=== PATIENT | female | born 1985 ===

== ENCOUNTER 2021-02-14 08:56 | Outpatient (CLI) | payer MEDICAID, OTHER ==
[2021-02-14 09:55] VITALS: BP 114/75
--- NOTE | 2021-02-14 13:47 | Ultrasound Report ---
ULTRASOUND OBSTETRIC LIMITED ULTRASOUND BIOPHYSICAL PROFILE INDICATION / CLINICAL INFORMATION: QUESTIONABLE WATER HAS BROKEN - DORENE. Clinical Gestational Age (GA) in weeks, days: 39 weeks TECHNIQUE: Transabdominal. COMPARISON: None available. FINDINGS: BREATHING MOVEMENT = 2 GROSS BODY MOVEMENT = 2 TONE = 2 QUALITATIVE AMNIOTIC FLUID VOLUME = 2 TOTAL BIOPHYSICAL SCORE = 8/8 HEART RATE (beats per minute): 133 AMNIOTIC FLUID INDEX (cm) = 9.9 (normal = 7-24 cm) PRESENTATION: Cephalic. ADDITIONAL FINDINGS: Placenta is located posteriorly. IMPRESSION: 1. Biophysical Score = 8/8 2. Single viable IUP in a cephalic presentation with normal DORENE at this time. Signer Name: Sammi Willams MD Signed: 02/14/2021 1:43 PM Workstation Name: [email or web address]
== END 2021-02-14 13:55 | disposition home or self-care (01) ==
LOC: TRG 08:56 → APU 08:57 → TRG 13:55
PROVIDERS: ATTEND Obstetrics & Gynecology
DX: Z34.93 Encounter for supervision of normal pregnancy, unspecified, third trimester (principal); Z3A.39 39 weeks gestation of pregnancy
CPT/HCPCS: 36415; 59025; 76815; 76819; 84112

== ENCOUNTER 2021-02-26 08:32 | Inpatient (IN) | payer OTHER ==
--- NOTE | 2021-02-26 10:18 | History and Physical Report ---
History of Present Illness Date of examination: 02/26/21 Date of admission: 02/26/21 Chief complaint: LOF History of present illness: at 39.3wks per records not c/w pt report. care at [facility]. Pt c/o LOF, denies vag bleed, headache or feeling ctx. Pt admits to movement. From records obtained later show left breast mass. GBS neg. Blood type O positive, neg ab screen, Rubella immune, RPR, HIV and HepBsA all neg. Past History Past Medical History: other (left breast mass) Past Surgical History: no surgical history Social history: no significant social history - Obstetrical History Expected Date of Delivery: 03/04/21 Actual Gestation: 39 Week(s) 1 Day(s) : 4 Para: 3 Number of Living Children: 3 Medications and Allergies Allergies Allergy/AdvReac Type Severity Reaction Status Date / Time No Known Allergies Allergy Verified 09/25/15 01:28 Home Medications Medication Instructions Recorded Confirmed Last Taken Type Vit-Fe Fumar-FA [ 1 tab PO QDAY 09/25/15 02/26/21 02/25/21 History Vitamin] Active Meds: Active Medications Acetaminophen (Acetaminophen 325 Mg Tab) 650 mg PO Q4H PRN PRN Reason: Pain, Mild (1-3) Carboprost Tromethamine (Carboprost Tromethamine 250 Mcg/1 Ml Inj) 250 mcg IM ONCE PRN PRN Reason: Uterine Bleeding Ephedrine Sulfate (Ephedrine Sulfate 50 Mg/1 Ml Inj) 10 mg IV Q2M PRN PRN Reason: Hypotension Fentanyl (Fentanyl 100 Mcg/2 Ml Inj) 100 mcg IV Q2H PRN PRN Reason: Pain,Severe (7-10) LABOR PAIN Oxytocin/Sodium Chloride (Pitocin/Ns 30 Unit/500ml) 30 units in 500 mls @ 2 mls/hr IV TITR ROSITA; Protocol Lactated Ringer's (Lactated Ringers) 1,000 mls @ 125 mls/hr IV DIRECT ROSITA Oxytocin/Sodium Chloride (Pitocin/Ns 30 Unit/500ml) 30 units in 500 mls @ 40 mls/hr IV TITR ROSITA; Protocol Ampicillin Sodium (Ampicillin/Ns 2 Gm/100 Ml) 2 gm in 100 mls @ 100 mls/hr IV ONCE ONE; Protocol Stop: 02/26/21 11:08 Lidocaine (Lidocaine (2%) 20 Mg/1 Ml Vial 20 Ml Mdv) 20 ml INFILTRATI ONCE ONE Stop: 02/26/21 10:10 Loperamide HCl (Loperamide 2 Mg Cap) 2 mg PO ONCE PRN PRN Reason: give with Hemabate Methylergonovine Maleate (Methylergonovine Maleate 0.2 Mg/Ml Vial) 0.2 mg IM ONCE PRN PRN Reason: Uterine Bleeding Mineral Oil (Mineral Oil 30 Ml Oral Liqd) 30 ml PO QHS PRN PRN Reason: Constipation Misoprostol (Misoprostol 200 Mcg Tab) 800 mcg IL ONCE PRN PRN Reason: Uterine Bleeding Nalbuphine HCl (Nalbuphine 10 Mg/1 Ml Inj) 10 mg IV Q2H PRN PRN Reason: Pain, Moderate (4-6) Naloxone HCl (Naloxone 0.4 Mg/1 Ml Inj) 0.1 mg IV Q2MIN PRN PRN Reason: Res Rate </= 8 or 02 SAT < 92% Ondansetron HCl (Ondansetron 4 Mg/2 Ml Inj) 4 mg IV Q8H PRN PRN Reason: Nausea And Vomiting Oxytocin (Oxytocin 10 Unit/1 Ml Inj) 10 unit IM ONCE PRN PRN Reason: Uterine Bleeding Promethazine HCl (Promethazine 25 Mg Tab) 25 mg PO Q6H PRN PRN Reason: Nausea And Vomiting Terbutaline Sulfate (Terbutaline 1 Mg/1 Ml Inj) 0.25 mg SUB-Q ONCE PRN PRN Reason: Hyperstimulation/Hypertonicity Review of Systems All systems: negative (LOF) - Vital Signs Vital signs: Vital Signs Temp Pulse Resp BP Pulse Ox 98.4 F 81 16 120/77 98 02/26/21 08:59 02/26/21 08:59 02/26/21 08:59 02/26/21 08:59 02/26/21 08:59 Temp Pulse Resp BP Pulse Ox 98.4 F 83 16 120/77 98 02/26/21 08:59 02/26/21 10:10 02/26/21 08:59 02/26/21 08:59 02/26/21 10:10 - Physical Exam Breasts: Positive: deferred Lungs: Positive: Normal air movement Abdomen: Positive: normal appearance Genitourinary (Female): Positive: normal external genitalia Vulva: both: normal (per nurse) Vagina: Positive: normal moisture Uterus: Positive: enlarged (non-tender, gravid) Extremities: Positive: normal - Obstetrical FHR: category 1 Cervical Dilatation: 4 (grossly ruptured per nurse report) Cervical Effacement Percentage: 0 station: -2 Uterine Contraction Pattern: Irregular Results Result Diagrams: 02/26/21 10:55 Abnormal lab results 02/26/21 Range/Units Unknown Membranes Rupture Positive A (Negative) All other labs normal. Assessment and Plan Term preg with PROM with irreg ctx, unknown GBS 1. Admit to labor and delivery, obtain records from records 2. Augment with pitocin if unchanged in 2hrs 3. Amp for unknown GBS 4. IV pain med or epidural when desired Plan of care discussed with pt and she agrees. all questions encouraged and answered
[2021-02-26] MEDS ORDERED: PROMETHAZINE 25 MG TAB PO PRN ×2 (11:00→16:06)
[2021-02-26] MEDS ORDERED: METHYLERGONOVINE MALEATE 0.2 MG/ML VIAL IM PRN (11:00)
[2021-02-26] MEDS ORDERED: NalbUPHINE 10 MG/1 ML INJ IV PRN (11:00)
[2021-02-26] MEDS ORDERED: OXYTOCIN DRIP 30 UNITS/500 ML BAG IV SCH ×2 (11:00)
[2021-02-26] MEDS ORDERED: ONDANSETRON 4 MG/2 ML INJ IV PRN ×2 (11:00→16:06)
[2021-02-26] MEDS ORDERED: LACTATED RINGERS 1,000 ML IV SCH (11:00)
[2021-02-26] MEDS ORDERED: LOPERAMIDE 2 MG CAP PO PRN (11:00)
[2021-02-26] MEDS ORDERED: ACETAMINOPHEN 325 MG TAB PO PRN (11:00)
[2021-02-26] MEDS ORDERED: TERBUTALINE 1 MG/1 ML INJ SUB-Q PRN (11:00)
[2021-02-26] MEDS ORDERED: NALOXONE 0.4 MG/1 ML INJ IV PRN (11:00)
[2021-02-26] MEDS ORDERED: miSOPROStol 200 MCG TAB PR PRN (11:00)
[2021-02-26] MEDS ORDERED: CARBOPROST TROMETHAMINE 250 MCG/1 ML INJ IM PRN (11:00)
[2021-02-26] MEDS ORDERED: AMPICILLIN/NS 2 GM/100 ML 2 GM/100 ML BAG IV ONE (11:00)
[2021-02-26] MEDS ORDERED: LIDOCAINE (2%) 20 MG/1 ML VIAL 20 ML MDV INFILTRATI ONE (11:00)
[2021-02-26] MEDS ORDERED: MINERAL OIL 30 ML ORAL LIQD PO PRN (11:00)
[2021-02-26] MEDS ORDERED: ePHEDrine SULFATE 50 MG/1 ML INJ IV PRN (11:00)
[2021-02-26] MEDS ORDERED: OXYTOCIN 10 UNIT/1 ML INJ IM PRN (11:00)
[2021-02-26] MEDS ORDERED: fentaNYL 100 MCG/2 ML INJ IV PRN (11:00)
[2021-02-26 11:09] LABS: Hematocrit 34.9 % (30.3-42.9); Mean Corpuscular HGB Conc 34 % (30-34); Mean Corpuscular Volume 85 fl (79-97); Platelet Count 162 K/mm3 (140-440)
--- NOTE | 2021-02-26 15:28 | Procedure Note ---
OB Delivery Note - Delivery Date of Delivery: 02/26/21 Surgeon: VIAD PRITCHARD Estimated blood loss: other (450cc) - Vaginal Delivery presentation: vertex Delivery position: OA Intrapartum events: uterine atony (cytotec 800mcg given and IV pitocin) Delivery induction: none Delivery augmentation: pitocin Delivery monitor: external FHT, external uterine Route of delivery: Delivery placenta: spontaneous Delivery cord: 3 umbilical vessels Episiotomy: none Delivery laceration: none Delivery comments: SAVD of viable female infant, placenta delivered complete and uterine atony treated with IV pitocin and cytotec 800mcg per rectum. Sustained no lacerations. Mom and baby stable. - A at 1 minute: 9 at 5 minutes: 9 Gender: Female (3410g)
[2021-02-26] MEDS ORDERED: HYDROcodone/ACETAMINOPHEN 5-325 MG TAB ONE (15:36)
[2021-02-26] MEDS ORDERED: PROMETHAZINE 25 MG RECT SUPP PR PRN (16:06)
[2021-02-26] MEDS ORDERED: WITCH HAZEL/ GLYCERIN PAD TP PRN (16:06)
[2021-02-26] MEDS ORDERED: diphenhydrAMINE 25 MG CAP PO PRN (16:06)
[2021-02-26] MEDS ORDERED: MAGNESIUM HYDROXIDE (MOM) ORAL LIQD UDC PO PRN (16:06)
[2021-02-26] MEDS ORDERED: LANOLIN/ZINC/DIMETHICONE (LANSINOH) 7 GM TP PRN (16:06)
[2021-02-26] MEDS: IBUPROFEN 600 MG TAB PO SCH (21:46)
[2021-02-26] MEDS: oxyCODONE /ACETAMINOPHEN 5-325MG TAB PO PRN (23:21)
[2021-02-27] MEDS: IBUPROFEN 600 MG TAB PO SCH ×3 (04:36→16:07)
[2021-02-27 05:40] LABS: Hematocrit 35.1 % (30.3-42.9); Hemoglobin 11.4 gm/dl (10.1-14.3)
[2021-02-27] MEDS: oxyCODONE /ACETAMINOPHEN 5-325MG TAB PO PRN (07:13)
--- NOTE | 2021-02-27 10:11 | Progress Note ---
Assessment and Plan A: S/P P: Continue rouitne pp orders Encourage ambulation D/C home tomm if stable Subjective - Subjective Date of service: 02/27/21 Principal diagnosis: S/P Patient reports: appetite normal, voiding normally, pain well controlled, ambulating normally [place]: doing well, bottle feeding Objective - Vital Signs Latest vital signs: Vital Signs Temp Pulse Resp BP BP Pulse Ox Pulse Ox 02/27/21 07:24 97.9 F 78 18 106/66 98 02/27/21 00:12 98.6 F 77 20 105/60 97 02/26/21 23:21 16 02/26/21 21:30 98 02/26/21 20:05 98.0 F 83 20 108/69 98 02/26/21 17:26 97.8 F 74 16 118/68 99 02/26/21 16:32 85 92 02/26/21 16:27 76 97 02/26/21 16:22 80 97 02/26/21 16:20 77 123/79 02/26/21 16:17 74 98 02/26/21 16:12 79 98 02/26/21 16:07 76 99 02/26/21 16:02 78 98 02/26/21 15:57 77 98 02/26/21 15:52 69 98 02/26/21 15:47 78 98 02/26/21 15:42 75 99 02/26/21 15:37 80 97 02/26/21 15:32 64 97 02/26/21 15:27 82 97 02/26/21 15:22 72 97 02/26/21 15:21 80 138/84 02/26/21 15:17 70 97 02/26/21 15:12 77 97 02/26/21 15:10 78 80 L 02/26/21 15:07 77 100 02/26/21 15:04 87 85 02/26/21 15:02 85 100 02/26/21 14:57 84 98 02/26/21 14:52 73 97 02/26/21 14:51 65 127/89 02/26/21 14:47 80 99 02/26/21 14:42 78 99 02/26/21 14:37 71 99 02/26/21 14:32 81 99 02/26/21 14:27 74 100 02/26/21 14:22 69 99 02/26/21 14:17 84 98 02/26/21 14:12 91 H 93 02/26/21 14:09 86 91 02/26/21 14:07 80 97 02/26/21 14:02 82 96 02/26/21 13:58 75 92 02/26/21 13:57 73 97 02/26/21 13:53 78 92 02/26/21 13:52 68 97 02/26/21 13:51 69 107/64 02/26/21 13:47 72 96 02/26/21 13:42 71 96 02/26/21 13:37 79 96 02/26/21 13:32 76 96 02/26/21 13:27 72 95 02/26/21 13:22 79 111/65 97 02/26/21 13:17 82 96 02/26/21 13:12 80 98 02/26/21 13:00 77 97 02/26/21 12:55 74 98 02/26/21 12:51 75 122/76 02/26/21 12:50 77 97 02/26/21 12:45 81 98 02/26/21 12:40 83 97 02/26/21 12:35 83 97 02/26/21 12:30 82 97 02/26/21 12:25 82 97 02/26/21 12:20 85 120/70 97 02/26/21 12:14 79 98 02/26/21 12:09 92 H 98 02/26/21 12:04 97 H 98 02/26/21 11:59 74 99 02/26/21 11:54 79 98 02/26/21 11:49 78 98 02/26/21 11:44 85 99 02/26/21 11:39 82 98 02/26/21 11:34 79 98 02/26/21 11:29 81 98 02/26/21 11:24 81 97 02/26/21 11:19 86 98 02/26/21 11:14 82 98 02/26/21 11:09 90 98 02/26/21 11:04 85 98 02/26/21 10:59 81 98 02/26/21 10:54 80 98 02/26/21 10:49 78 98 02/26/21 10:44 82 98 02/26/21 10:39 88 98 02/26/21 10:34 79 98 02/26/21 10:30 72 131/78 02/26/21 10:29 85 100 02/26/21 10:20 88 98 02/26/21 10:15 85 99 Intake and Output 02/26/21 02/27/21 02/27/21 22:59 06:59 14:59 Intake Total 350 240 Output Total 150 200 Balance 200 -200 240 Intake: Oral 350 240 Output: Urine 150 200 Void 150 200 Other: Total, Intake Amount 350 240 Total, Output Amount 150 200 # Voids Void 1 Estimated Blood Loss 450 - Exam Breasts: Present: normal Abdomen: Present: normal appearance, soft, normal bowel sounds Vulva: both: normal Uterus: Present: normal, firm Extremities: Present: normal - Labs Labs: Abnormal lab results 02/26/21 Range/Units Unknown Membranes Rupture Positive A (Negative)
--- NOTE | 2021-02-27 10:16 | Discharge Summary ---
Providers - Providers Date of Admission: 02/26/21 10:09 Date of discharge: 02/28/21 Attending physician: VIDA PRITCHARD Primary care physician: NAHEED FELIPE JR, MD Hospitalization Reason for admission: active labor, rupture of membranes, IUP at term Delivery: Episiotomy: none Laceration: none Other procedures: none complications: none Discharge diagnosis: IUP at term delivered [place] baby: female Hospital course: Pt was admitted to [facility] with c/o uc and LOF. She had a w/o pp complications. See h&p, delivery summary, and pp notes. Condition at discharge: Stable Disposition: HOME / SELF CARE / HOMELESS Plan - Discharge Medications Prescriptions: Ibuprofen [Motrin 600 MG tab] 600 mg PO Q6H PRN #30 tablet PRN Reason: Menstrual Cramps - Provider Discharge Summary Activity: routine, no sex for 6 weeks, no heavy lifting 4 weeks, no strenuous exercise Diet: routine Instructions: routine Additional instructions: [] Smoking cessation referral if applicable(refer to patient education folder for contact #) [] Refer to [facility]'s [facility] Booklet Call your doctor immediately for: * Fever > 100.5 * Heavy vaginal bleeding ( >1 pad per hour) * Severe persistent headache * Shortness of breath * Reddened, hot, painful area to leg or breast * Drainage or odor from incision. * Keep incision clean and dry at all times and follow doctor's instructions regarding bathing/showering - Follow up plan Follow up: NAHEED FELIPE JR, MD [Primary Care Provider] - 6 Weeks
[2021-02-27 18:04] VITALS: BP 119/72
== END 2021-02-27 19:00 | disposition home or self-care (01) | DRG 775 ==
LOC: TRG 08:32 → APU 08:34 → LD 10:09 → TRG 10:09 → LD 10:28 → OB 17:13
PROVIDERS: ADMIT Obstetrics & Gynecology; ATTEND Obstetrics & Gynecology
PROC: 10E0XZZ Delivery of Products of Conception, External Approach (ICD-10-PCS; principal; 2021-02-26)
DX: O42.02 Full-term premature rupture of membranes, onset of labor within 24 hours of rupture (principal); Z37.0 Single live birth; Z3A.39 39 weeks gestation of pregnancy; Z20.822 Contact with and (suspected) exposure to COVID-19; O62.2 Other uterine inertia
CPT/HCPCS: 36415; 84112; 85014; 85018; 85027; 86592; 86850; 86900; 86901; 96368; 96374; G0378; J3490; J0290; J2300; J2405; J2590; J7120; U0003